=== PATIENT | male | born 1970 ===

== ENCOUNTER 2020-04-10 15:23 | Emergency (ER) | payer OTHER ==
[2020-04-10 16:09] LABS: Protime INR 1.03
[2020-04-10 16:10] LABS: Basophils % 0.2 % (0-1.3); Lymphocytes % 13.9 % (15.3-44.8); MPV 9.6 fL (7.6-11.3); RBC Red Blood Cell Count 5.11 M/uL (4.33-5.43)
--- NOTE | 2020-04-10 16:17 | RAD REPORT ---
EXAM DESCRIPTION: RAD - Chest Single View - 04/10/2020 4:05 pm CLINICAL HISTORY: syncope COMPARISON: None TECHNIQUE: AP portable chest image was obtained 04/10/2020 4:05 pm . FINDINGS: Lungs are clear. Heart and vasculature are normal. No measurable pleural effusion and no p neumothorax. No acute bony abnormality seen. No acute aortic findings suspected. IMPRESSION: No acute cardiopulmonary process.
[2020-04-10 16:23] LABS: ALT/SGPT 60 U/L (12-78); AST/SGOT 25 U/L (15-37); Albumin 3.6 g/dL (3.4-5.0); Alkaline Phosphatase 112 U/L (45-117); BUN Blood Urea Nitrogen 14 mg/dL (7-18); Bicarbonate 26 mmol/L (21-32); Bilirubin Direct < 0.1 mg/dL (0-0.2); Bilirubin Total 0.3 mg/dL (0.2-1.0); Creatine Phosphokinase 66 U/L (39-308); Glucose Level 110 mg/dL (74-106); Magnesium 2.2 mg/dL (1.8-2.4); NT PRO-BNP 15 pg/mL (<125); Potassium 3.8 mmol/L (3.5-5.1); Protein, Total 7.3 g/dL (6.4-8.2); Sodium Level 139 mmol/L (136-145); Troponin (Emerg Dept Use Only) < 0.02 ng/mL (0.0-0.045)
--- NOTE | 2020-04-10 16:41 | ER ---
Nurse's Notes [facility] Name: Yandel Nielsen Age: 49 yrs Sex: Male : 1970 Arrival Date: 04/10/2020 Time: 15:25 Bed 25 Private MD: Diagnosis: Near Syncope Presentation: 04/10 15:18 Chief complaint: EMS states: was at work and was coming out of the bathroom and had a sv syncopal episode, denies LOC, remembers everything happened. Pt was sitting on the ground; vitals were WNL. They stood him up and looked pale, took his BP and is was 60/40. c/o numbness and tingling throughout his body. 15:18 Method Of Arrival: EMS: [facility] sv 15:27 Initial Sepsis Screen: Does the patient meet any 2 criteria? No. Patient's initial sv sepsis screen is negative. Does the patient have a suspected source of infection? No. Patient's initial sepsis screen is negative. Risk Assessment: Do you want to hurt yourself or someone else? Patient reports no desire to harm self or others. Onset of symptoms was April 10, 2020. 15:27 Acuity: LETITIA 2 sv 15:54 Coronavirus screen: Proceed with normal triage. Patient denies a cough. Patient denies ll1 shortness of breath or difficulty breathing. Patient denies measured and/or subjective temperature greater than 100.4F prior to today's visit. Patient denies travel on a cruise ship or to a country the [facility] currently lists as an affected area. Patient denies contact with known and/or suspected case of COVID-19. Ebola Screen: Patient denies travel to an Ebola-affected area in the 21 days before illness onset. Triage Assessment: 15:28 General: Appears in no apparent distress. comfortable, Behavior is calm, cooperative, sv appropriate for age. Pain: Denies pain. Neuro: Level of Consciousness is awake, alert, obeys commands, Oriented to person, place, time, situation, Reports numbness in "all over". Respiratory: Respiratory effort is even, unlabored. Historical: - Allergies: 15:28 No Known Allergies; sv - PMHx: 15:28 Hypertension; sv - Immunization history:: Adult Immunizations up to date. - Social history:: Smoking status: Patient denies any tobacco usage or history of. Screenin:53 Abuse screen: Denies threats or abuse. Nutritional screening: No deficits noted. ll1 Tuberculosis screening: No symptoms or risk factors identified. Fall Risk None identified. Fall in past 12 months (25 points). IV access (20 points). [address] St Fall Scale indicates High Risk Score (45 or more points). Fall prevention measures have been instituted. Side Rails Up X 2 Placed Close to Nursing Station Frequent Obs/Assessments Occuring Family Present and informed to notify staff if the need to leave the bedside As available patient and family educated on Fall Prevention Program and Strategies. Assessment: 15:52 General: Appears in no apparent distress. Pain: Denies pain. Neuro: Level of ll1 Consciousness is awake, alert, obeys commands, Oriented to person, place, time, situation, Appropriate for age Neurosurgery Research Director are equal bilaterally Moves all extremities. Full function Gait is steady, Speech is normal, Facial symmetry appears normal, Pupils are PERRLA, Reports dizziness, paresthesias a syncopal episode. Cardiovascular: Denies chest pain, shortness of breath, Heart tones S1 S2 Capillary refill < 3 seconds Clubbing of nail beds is absent JVD is absent Patient's skin is warm and dry. Pulses are all present. Cardiovascular: Rhythm is regular. Respiratory: No deficits noted. GI: No deficits noted. 16:50 Reassessment: Patient appears in no apparent distress at this time. No changes from ll1 previously documented assessment. Patient and/or family updated on plan of care and expected duration. Pain level reassessed. Patient is alert, oriented x 3, equal unlabored respirations, skin warm/dry/pink. Gait steady. Co-worker driving home. 17:30 Reassessment: No changes from previously documented assessment. Patient and/or family ll1 updated on plan of care and expected duration. Pain level reassessed. Patient is alert, oriented x 3, equal unlabored respirations, skin warm/dry/pink. States he started to get tingling his feet again when getting into vehicle. Leaned over to side, and felt better. 18:30 Reassessment: Patient appears in no apparent distress at this time. No changes from ll1 previously documented assessment. Patient and/or family updated on plan of care and expected duration. Pain level reassessed. Patient is alert, oriented x 3, equal unlabored respirations, skin warm/dry/pink. Waiting for CT result. 19:15 Reassessment: Patient appears in no apparent distress at this time. Patient and/or family updated on plan of care and expected duration. Pain level reassessed. Patient is alert, oriented x 3, equal unlabored respirations, skin warm/dry/pink. 20:15 Reassessment: Provider at bedside explaining POC CT results. Pt instructed to walk with Pulse Ox and Orthostatics after. 20:35 Reassessment: Patient appears in no apparent distress at this time. No changes from previously documented assessment. Patient and/or family updated on plan of care and expected duration. Pain level reassessed. Patient is alert, oriented x 3, equal unlabored respirations, skin warm/dry/pink. Vital Signs: 15:18 BP 146 / 89; Pulse 67; Resp 16; Temp 98.8; Pulse Ox 99% ; Weight 95.25 kg; Height 5 ft. sv 11 in. (180.34 cm); 15:30 BP 142 / 91 Supine; Pulse 67; ll1 15:34 BP 152 / 101 Sitting; Pulse 75; ll1 15:37 BP 136 / 92 Standing; Pulse 72; ll1 16:45 BP 150 / 89; Pulse 63; Resp 17; Pulse Ox 99% ; Pain 0/10; ll1 17:25 BP 158 / 95; Pulse 66; Resp 18; Pulse Ox 95% ; ll1 18:30 BP 124 / 98; Pulse 66; Resp 17; Pulse Ox 98% ; ll1 19:03 BP 139 / 78; Pulse 63; Resp 18; Pulse Ox 96% ; ll1 20:15 BP 128 / 83; Pulse 66; Resp 18; Pulse Ox 98% on R/A; wh 15:18 Body Mass Index 29.29 (95.25 kg, 180.34 cm) sv 17:25 States he feels dizzy and tingling when moving/sitting up. Feels better when laying ll1 down. ED Course: 15:25 Patient arrived in ED. sv 15:27 Iron Ching PA is PHCP. jr8 15:27 Malik Araya MD is Attending Physician. jr8 15:28 Triage completed. sv 15:28 Nurse Practitioner and/or Physician Bracer to see patient. sv 15:28 Arm band placed on. sv 15:41 Rebekah Romano RN is Primary Nurse. ll1 15:54 Patient has correct armband on for positive identification. Placed in gown. Bed in low ll1 position. Call light in reach. Side rails up X 1. monitoring analyst on. Pulse ox on. NIBP on. 16:05 XRAY Chest (1 view) In Process Unspecified. EDMS 16:52 No provider procedures requiring assistance completed. IV discontinued, intact, ll1 bleeding controlled, No redness/swelling at site. Pressure dressing applied. 17:21 Primary Nurse role handed off by Rebekah Romano, CHERYLE ll1 17:21 Rebekah Romano RN is Primary Nurse. ll1 18:33 CT Head Brain wo Cont In Process Unspecified. EDMS 19:05 Report given to CHERYLE Wall. ll1 Administered Medications: 15:30 Drug: NS 0.9% 1000 ml Route: IV; Rate: 1 bolus; Site: left antecubital; ll1 16:37 Follow up: Response: No adverse reaction; IV Status: Completed infusion; IV Intake: ll1 1000ml 19:00 Not Given (Patient Refused): Meclizine 25 mg PO once ll1 Point of Care Testin:54 done with blood work ll1 Ranges: Intake: 16:37 IV: 1000ml; Total: 1000ml. ll1 Outcome: 16:41 Discharge ordered by . best 16:51 Patient left the ED. ll1 17:13 Discharged to home ambulatory. ll1 17:13 Condition: stable 17:13 Discharge instructions given to patient, Instructed on discharge instructions, follow up and referral plans. Demonstrated understanding of instructions, follow-up care. 20:43 Discharged to home ambulatory. 20:43 Condition: stable 20:43 Discharge instructions given to patient, Instructed on discharge instructions, follow up and referral plans. POC Demonstrated understanding of instructions, follow-up care, POC 20:44 Patient left the ED. Signatures: Dispatcher [employer] EDAmy Wallace RN Iron Pineda PA PA jr8 [place], Winsy Rebekah Romano RN RN 1
--- NOTE | 2020-04-10 16:42 | EDPHYS ---
Physician Documentation [facility] Name: Yandel Nielsen Age: 49 yrs Sex: Male : 1970 Arrival Date: 04/10/2020 Time: 15:25 Bed 25 Private MD: ED Physician Malik Araya HPI: 04/10 15:59 This 49 yrs old Male presents to ER via EMS with complaints of Syncope. jr8 15:59 The patient has experienced near-syncope. Onset: The symptoms/episode began/occurred jr8 acutely, today. Duration: This was a single episode. Context: occurred at work. Associated injury: The patient did not suffer any apparent associated injury. Associated signs and symptoms: Pertinent positives: numbness, tingling. Current symptoms: Currently, the patient is not experiencing any symptoms. The patient has not experienced similar symptoms in the past. The patient has not recently seen a physician. Patient stated that he was coming out of the bathroom and started to feel tingling from his feet up. Then became dizzy and started to have blurred vision. Denies LOC and remembered entire incident. Denies CP, shortness of breath, headache. Feels back to normal now . Historical: - Allergies: 15:28 No Known Allergies; sv - PMHx: 15:28 Hypertension; sv - Immunization history:: Adult Immunizations up to date. - Social history:: Smoking status: Patient denies any tobacco usage or history of. ROS: 15:59 Eyes: Negative for injury, pain, redness, and discharge, ENT: Negative for injury, jr8 pain, and discharge, Neck: Negative for injury, pain, and swelling, Cardiovascular: Negative for chest pain, palpitations, and edema, Respiratory: Negative for shortness of breath, cough, wheezing, and pleuritic chest pain, Abdomen/GI: Negative for abdominal pain, nausea, vomiting, diarrhea, and constipation, Back: Negative for injury and pain, MS/Extremity: Negative for injury and deformity, Skin: Negative for injury, rash, and discoloration. 15:59 Neuro: Positive for dizziness, near syncope, tingling. Exam: 15:59 Constitutional: This is a well developed, well nourished patient who is awake, alert, jr8 and in no acute distress. Eyes: Pupils equal round and reactive to light, extra-ocular motions intact. Lids and lashes normal. Conjunctiva and sclera are non-icteric and not injected. Cornea within normal limits. Periorbital areas with no swelling, redness, or edema. ENT: Nares patent. No nasal discharge, no septal abnormalities noted. Tympanic membranes are normal and external auditory canals are clear. Oropharynx with no redness, swelling, or masses, exudates, or evidence of obstruction, uvula midline. Mucous membranes moist. Neck: Trachea midline, no thyromegaly or masses palpated, and no cervical lymphadenopathy. Supple, full range of motion without nuchal rigidity, or vertebral point tenderness. No Meningismus. Cardiovascular: Regular rate and rhythm with a normal S1 and S2. No gallops, murmurs, or rubs. Normal PMI, no JVD. No pulse deficits. Respiratory: Lungs have equal breath sounds bilaterally, clear to auscultation and percussion. No rales, rhonchi or wheezes noted. No increased work of breathing, no retractions or nasal flaring. Abdomen/GI: Soft, non-tender, with normal bowel sounds. No distension or tympany. No guarding or rebound. No evidence of tenderness throughout. Back: No spinal tenderness. No costovertebral tenderness. Full range of motion. Skin: Warm, dry with normal turgor. Normal color with no rashes, no lesions, and no evidence of cellulitis. MS/ Extremity: Pulses equal, no cyanosis. Neurovascular intact. Full, normal range of motion. Neuro: Awake and alert, GCS 15, oriented to person, place, time, and situation. Cranial nerves II-XII grossly intact. Motor strength 5/5 in all extremities. Sensory grossly intact. Cerebellar exam normal. Normal gait. Vital Signs: 15:18 BP 146 / 89; Pulse 67; Resp 16; Temp 98.8; Pulse Ox 99% ; Weight 95.25 kg; Height 5 ft. sv 11 in. (180.34 cm); 15:30 BP 142 / 91 Supine; Pulse 67; ll1 15:34 BP 152 / 101 Sitting; Pulse 75; ll1 15:37 BP 136 / 92 Standing; Pulse 72; ll1 16:45 BP 150 / 89; Pulse 63; Resp 17; Pulse Ox 99% ; Pain 0/10; ll1 17:25 BP 158 / 95; Pulse 66; Resp 18; Pulse Ox 95% ; ll1 18:30 BP 124 / 98; Pulse 66; Resp 17; Pulse Ox 98% ; ll1 19:03 BP 139 / 78; Pulse 63; Resp 18; Pulse Ox 96% ; ll1 20:15 BP 128 / 83; Pulse 66; Resp 18; Pulse Ox 98% on R/A; wh 15:18 Body Mass Index 29.29 (95.25 kg, 180.34 cm) sv 17:25 States he feels dizzy and tingling when moving/sitting up. Feels better when laying ll1 down. MDM: 15:27 Patient medically screened. jr8 16:39 Differential Diagnosis: aortic aneurysm, cardiac arrhythmia, cerebrovascular accident, jr8 drug effect, emotional response, GI bleed, idiopathic syncope, seizure, sepsis, transient ischemic attack, vasovagal episode. Data reviewed: vital signs, nurses notes, lab test result(s), EKG, radiologic studies, plain films. Data interpreted: Pulse oximetry: on room air is 99 %. Interpretation: normal. Counseling: I had a detailed discussion with the patient and/or guardian regarding: the historical points, exam findings, and any diagnostic results supporting the discharge/admit diagnosis, lab results, radiology results, the need for outpatient follow up, a family practitioner, to return to the emergency department if symptoms worsen or persist or if there are any questions or concerns that arise at home. Response to treatment: the patient's symptoms have resolved after treatment, patient is well hydrated. ED course: No acute cardiac, pulmonary, renal, or blood findings. Rest of labs, CXR, and ECG unremarkable. Orthostatics negative. Still without secondary s/s such as CP, shortness of breath, or focal weakness. Recommend rest for the rest of today and continue to hydrate and eat well. If other symptoms were to appear to come back for reevaluation. Otherwise to f/u with PCP in a couple days. Patient good with plan . 04/10 15:35 Order name: Basic Metabolic Panel; Complete Time: 16:33 04/10 15:35 Order name: CBC with Diff; Complete Time: 16:23 04/10 15:35 Order name: LFT's; Complete Time: 16:33 04/10 15:35 Order name: Magnesium; Complete Time: 16:33 04/10 15:35 Order name: NT PRO-BNP; Complete Time: 16:33 04/10 15:35 Order name: PT-INR; Complete Time: 16:23 04/10 15:35 Order name: Troponin (emerg Dept Use Only); Complete Time: 16:04/10 15:35 Order name: XRAY Chest (1 view); Complete Time: 16:23 04/10 15:35 Order name: EKG; Complete Time: 15:36 04/10 15:35 Order name: Cardiac monitoring; Complete Time: 15:44 04/10 15:35 Order name: CK; Complete Time: 16:33 04/10 18:15 Order name: CT Head Brain wo Cont; Complete Time: 19:17 04/10 15:35 Order name: EKG - Nurse/Tech; Complete Time: 15:44 04/10 15:35 Order name: IV Saline Lock; Complete Time: 15:43 04/10 15:35 Order name: Labs collected and sent; Complete Time: 15:43 04/10 15:35 Order name: O2 Per Protocol; Complete Time: 15:43 04/10 15:35 Order name: O2 Sat Monitoring; Complete Time: 15:43 Administered Medications: 15:30 Drug: NS 0.9% 1000 ml Route: IV; Rate: 1 bolus; Site: left antecubital; ll1 16:37 Follow up: Response: No adverse reaction; IV Status: Completed infusion; IV Intake: ll1 1000ml 19:00 Not Given (Patient Refused): Meclizine 25 mg PO once ll1 Point of Care Testin:54 done with blood work ll1 Ranges: Critical Glucose Levels:Adult <50 mg/dl or >400 mg/dl <40 mg/dl or >180 mg/dl Disposition: 04/11 13:37 Co-signature as Attending Physician, Malik Araya MD I agree with the assessment and oliva plan of care. Disposition: 04/10/20 16:41 Discharged to Home. Impression: Near Syncope. - Condition is Stable. - Discharge Instructions: Near-Syncope, Syncope. - Medication Reconciliation Form, Thank You Letter, Antibiotic Education, Prescription Opioid Use form. - Follow up: Private Physician; When: 2 - 3 days; Reason: Recheck today's complaints, Continuance of care, Re-evaluation by your physician. - Problem is new. - Symptoms have improved. Signatures: Dispatcher [employer] Amy Lagunas, RN RN Malik Pemberton MD MD cha Roszak, Josh, PA PA jr8 Trevor Rankin Rebekah Romano, RN RN ll1 Corrections: (The following items were deleted from the chart) 04/10 16:51 16:41 04/10/2020 16:41 Discharged to Home. Impression: Near Syncope. Condition is ll1 Stable. Forms are Medication Reconciliation Form, Thank You Letter, Antibiotic Education, Prescription Opioid Use. Follow up: Private Physician; When: 2 - 3 days; Reason: Recheck today's complaints, Continuance of care, Re-evaluation by your physician. Problem is new. Symptoms have improved. jr8 20:44 16:51 04/10/2020 16:41 Discharged to Home. Impression: Near Syncope. Condition is wh Stable. Discharge Instructions: Near-Syncope, Syncope. Forms are Medication Reconciliation Form, Thank You Letter, Antibiotic Education, Prescription Opioid Use. Follow up: Private Physician; When: 2 - 3 days; Reason: Recheck today's complaints, Continuance of care, Re-evaluation by your physician. Problem is new. Symptoms have improved. ll1
[2020-04-10] MEDS ORDERED: MECLIZINE HCL 12.5 MG TAB ONE (17:54)
--- NOTE | 2020-04-10 19:14 | RAD REPORT ---
EXAM DESCRIPTION: CT - Head Brain Wo Cont - 04/10/2020 6:32 pm CLINICAL HISTORY: Headache;Numbnesssyncope COMPARISON: None TECHNIQUE: Axial 5 mm thick images of the head were obtained without IV contrast. All CT scans are performed using dose optimization technique as appropriate and may include automated exposure control or mA/KV adjustment according to patient size. FINDINGS: No intracranial hemorrhage, mass, edema or shift of mid-line structures. No acute infarcti on changes seen. No abnormal extra-axial fluid collections. Ventricles are normal. Mastoid air cells and visualized portions of the paranasal sinuses are clear. No acute bony findings. IMPRESSION: Negative non-contrast CT head examination.
[2020-04-10 20:56] VITALS: BP 128/83; O2SAT 98
--- NOTE | 2020-04-12 07:21 | EKG ---
Test Date: 2020-04-10 Test Time: 16:42:25 Activities Manager: LEONARD MEASUREMENT RESULTS: Intervals: Rate: 65 DC: 142 QRSD: 88 QT: 404 QTc: 420 [place]: P: 39 DC: 142 QRS: -5 T: 8 INTERPRETIVE STATEMENTS: Normal sinus rhythm Normal ECG No previous ECG available for comparison Electronically Signed On 04-12-20 07:16:11 CDT by Shantanu Moscoso
== END 2020-04-10 20:44 | disposition home or self-care (01) ==
LOC: ER 15:23
DX: R55 Syncope and collapse (principal); I10 Essential (primary) hypertension
CPT/HCPCS: 36415; 70450; 71045; 80048; 80076; 82550; 83735; 83880; 84484; 85025; 85610; 93005; 96360; 99284; J8597